=== PATIENT | male | born 1965 | race Two or more races ===

== ENCOUNTER 2022-07-22 10:51 | Emergency (ER) | payer OTHER ==
[~2022-07-22] VITALS: Ht 172.7 cm; Wt 102.1 kg
[2022-07-22] MEDS ORDERED: LOSARTAN POTAS100 MG PO (12:07)
[2022-07-22] MEDS ORDERED: ALLOPURINOL300 MG PO (12:07)
[2022-07-22] MEDS ORDERED: SYNJARDY XR 121 EACH PO (12:07)
[2022-07-22] MEDS ORDERED: TRULICITY4.5 MG/0.5 SQ (12:08)
[2022-07-22] MEDS ORDERED: TAMSULOSIN HCL0.4 MG PO (12:08)
[2022-07-22] MEDS ORDERED: ATORVASTATIN CA40 MG PO (12:09)
== END 2022-07-22 16:06 | disposition home or self-care (01) ==
LOC: ER 10:51
DX: S33.9XXA Sprain of unspecified parts of lumbar spine and pelvis, initial encounter (principal); X58.XXXA Exposure to other specified factors, initial encounter; Y93.9 Activity, unspecified; Y92.9 Unspecified place or not applicable; Y99.9 Unspecified external cause status; M54.50 Low back pain, unspecified; I10 Essential (primary) hypertension; E11.9 Type 2 diabetes mellitus without complications

== ENCOUNTER 2024-05-09 07:12 | Outpatient (CLI) | payer OTHER ==
[~2024-05-09 07:12] MED LIST: ALLOPURINOL300 MG PO; ATORVASTATIN CA40 MG PO; LOSARTAN POTAS100 MG PO; SYNJARDY XR 121 EACH PO; TAMSULOSIN HCL0.4 MG PO; TRULICITY4.5 MG/0.5 SQ
== END 2024-05-09 07:21 | disposition home or self-care (01) ==
LOC: SONOGRAMA 07:12
PROVIDERS: ATTEND Urology
DX: N40.1 Benign prostatic hyperplasia with lower urinary tract symptoms (principal); R97.20 Elevated prostate specific antigen [PSA]